=== PATIENT | male | born 1950 | race Caucasian/White ===

== ENCOUNTER 2018-11-14 14:00 | Outpatient (RCR) | payer MEDICARE, OTHER, SELFPAY ==
[2018-07-24 13:14] VITALS: BP 114/88; BP 118/90; BMI 27.3
[2018-08-22 07:54] VITALS: BP 132/82
[2018-09-17 15:29] VITALS: BP 112/82
[2018-10-17 16:08] VITALS: BP 118/86
[2018-11-14 16:20] VITALS: BP 122/68; BMI 27.1
== END 2018-11-15 08:04 ==
LOC: CAR 14:00
PROVIDERS: PCP Family Medicine; Visit Provider Family Medicine
DX: Z95.1 Presence of aortocoronary bypass graft (principal)
CPT/HCPCS: 93798

== ENCOUNTER → 2023-03-16 07:46 | Outpatient (CLI) | payer MEDICARE, OTHER, SELFPAY | LOC: PHYS 07:49 | PROVIDERS: Family Provider Student in an Organized Health Care Education/Training Program; PCP Student in an Organized Health Care Education/Training Program; Referring Provider Student in an Organized Health Care Education/Training Program; Visit Provider Student in an Organized Health Care Education/Training Program | DX: G62.9 Polyneuropathy, unspecified (principal) | CPT/HCPCS: 95886; 95911 ==

== ENCOUNTER 2023-12-13 15:15 | Outpatient (RCR) | payer MEDICARE, OTHER, SELFPAY ==
--- NOTE | 2023-11-08 08:49 | PT.OIE ---
Current Diagnoses Dizziness and giddiness (11/08/23) Visit Care Team Role Provider Type VITOR Lawson Family Provider Non-Staff Primary Care Provider Specialty: Nursing Address: [address] [place] [address], [id number] Email: Jasson Del Rio MD Attending Provider Physician Referring Provider Specialty: Ear, Nose, Throat Address: [address] [place] [address], [id number] Email: [email or web address] Physical Therapy Initial Evaluation PT-OP-A Visit Information Start: 11/08/23 07:14 Freq: Status: Active Protocol: Document 11/08/23 07:29 MB (Rec: 11/08/23 07:55 MB [id number]) Out-Patient Physical Therapy Visit Information Visit Information Visit Type Initial Evaluation Visit Note [employer] Visit Start Time 07:29 Visit Stop Time 08:15 Visit Number 46 Number of SPRING ASSEMBLER SUPERVISOR Visits 0 Evaluation Information Evaluation Date 11/08/23 PT-OP-B Current Condition Start: 11/08/23 07:14 Freq: Status: Active Protocol: Document 11/08/23 07:29 MB (Rec: 11/08/23 07:55 MB [id number]) Current Condition History of Current Condition Onset Date May 2023 Current Complaints Imbalance History of Current Condition In May of 2023, pt was in [place], and on the third day, he woke up and he could barely stand up. He had significant balance issues when he stood up and his head felt full. He went to the ED in [facility] in May after Urgent Care call . He had a CT, MRI and lab studies and all was normal. He was then referred Dr. Del Rio and he couldn't get in to see him until last week. PMH includes: CABG Jun 2018, HTN, DM, kidney disease Pt's current complaint is imbalance. Turning head quickly and occ getting up makes it worse. Standing stationary makes it better. Symptoms in May lasted for hours. Now, they are momentary and last a few seconds. He did not get a dx from Dr. Del Rio. 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 Pt has been able to perform softball since May. Pt denies: ear pressure, history of concussion, performance of sit-ups, anemia , weakness, sinus and allergy issues, trouble swallowing, B12 deficiency, roaring or ringing in the ears, history of whiplash, chiropractor treatment since May, TMJ problems, headache, neck pain. Treatment Goals Patient/Caregiver Goals To play softball with his historical skill. PT-OP-C Subjective Start: 11/08/23 07:14 Freq: Status: Active Protocol: Document 11/08/23 07:29 MB (Rec: 11/08/23 07:55 MB [id number]) OP-PT Subjective Patient Comments Patient Comments See history of current condition Patient Questionnaires Dizziness Handicap Inventory DHI Score 18 DHI Functional Impairment 1 to 19% Impaired (Score 1-19) PT-OP-D Balance Start: 11/08/23 07:14 Freq: Status: Active Protocol: Document 11/08/23 07:29 MB (Rec: 11/08/23 08:48 MB [id number]) Balance Tests Other Other Balance Tests Performed Balance testing: Romberg EO and EC on stable surface: increased sway and no LOB with EC. On unstable surface, sway with EO and LOB with EC PT-OP-H Neuro Start: 11/08/23 07:14 Freq: Status: Active Protocol: Document 11/08/23 07:29 MB (Rec: 11/08/23 07:55 MB [id number]) Coordination Evaluation Upper Extremity Tests Left Finger to Nose Test Normal Performance Pronation/Supination Test Normal Performance Right Finger to Nose Test Normal Performance Pronation/Supination Test Normal Performance Vital Signs Comments Vital Signs Comments Orthostatic assessment with BP and HR in LUE: supine: 135/79 , 73; standin/91, 83; standing 1': 165/97, 84. Pt did take his BP medication this morning. Mildly imbalanced with standing up. PT-OP-K Range of Motion Start: 11/08/23 07:14 Freq: Status: Active Protocol: Document 11/08/23 07:29 MB (Rec: 11/08/23 08:48 MB [id number]) Cervical Spine Range of Motion Cervical Spine Active Testing Position Standing Flexion 40 Extension 30 Rotation Left 60 Rotation Right 40 Comments No dizziness with 5 rep repeated cervical extension back to neutral and repeated cervical flexion back to neutral Shoulder Goniometric Range of Motion Shoulder Bilateral Shoulder ROM WFL Yes Testing Position Standing PT-OP-M Strength Start: 11/08/23 07:14 Freq: Status: Active Protocol: Document 11/08/23 07:29 MB (Rec: 11/08/23 08:48 MB [id number]) Shoulder Strength Shoulder Manual Muscle Testing Bilateral Flexion 5 Normal Abduction (C5) 5 Normal Elbow/Forearm Strength Elbow and Forearm Manual Muscle Testing Bilateral Extension (C7) 5 Normal PT-OP-O Vestibular Start: 11/08/23 07:14 Freq: Status: Active Protocol: Document 11/08/23 07:29 MB (Rec: 11/08/23 08:48 MB [id number]) Vestibular Assessment Visual Testing Smooth Pursuits Horizontal Normal Smooth Pursuits Vertical Normal Saccades Horizontal Normal Gaze Evoked Nystagmus With Fixation Negative Thrust Head Positive Bilateral Convergence Test WNL Spontaneous Nystagmus Negative Vestibulo-Ocular Reflex Cancellation Negative Comments Vestibular Comments Triaged testing today for time use and pt denies dizziness with turning in bed so can defer [place]-Hallpike to a later treatment as needed PT-OP-Q Treatments Start: 11/08/23 07:14 Freq: Status: Active Protocol: Document 11/08/23 07:29 MB (Rec: 11/08/23 08:48 MB [id number]) Self-Care/Home Management Treatment Education Other Education Ed pt on benefits of monitoring BP and communicating with PCP and manager instrumentation, findings of imbalance and likely VOR and peripheral sensory issue components d/t positive VOR head thrust and LOB with unstable surface balance testing with EC. Ed pt in benefits of non-caffeinated fluid intake and to consider light electrolytes each day. Pt also states that he needs to find a new hair and makeup designer and will defer fluid and electrolyte recommendations to medical doctor providers as well. PT-OP-T Assessment and Plan Start: 11/08/23 07:14 Freq: Status: Active Protocol: Document 11/08/23 07:29 MB (Rec: 11/08/23 08:48 MB [id number]) Physical Therapy Assessment Rehab Potential Rehabilitation Potential Fair Evaluation Complexity Number of Personal Factors/Comorbidities 1-2 Number of Body Systems Impaired 3 Clinical Presentation at Evaluation Evolving Impairments Impairments Activity Tolerance,Balance, Functional Activities, Functional Mobility,Gait, Posture,ROM,Sensation,Soft Tissue Mobility,Strength, Vestibular Goals 3 Impairment Lack of HEP Drywall Taper Helper Goal (LTG) Pt will perform progressive HEP with I including VOR, postural and balance exercises to decrease fall risk and improve symptoms. LTG Duration 8 weeks 2 Impairment DHI score reflects 18% impairment Drywall Taper Helper Goal (LTG) Pt will present with an improved DHI score to reflect no more than 10% impairment to improve balance and quality of life d/t dizziness. LTG Duration 8 weeks 1 Impairment Imbalance Halfway Goal (LTG) Pt will perform WNLs on FGA to decrease fall risk. LTG Duration 8 weeks Assessment Summary Assessment Pt is a 72 y/o who reports feeling symptoms of head fullness and imbalance when visiting [place] in extreme heat last summer. ED visit in [place] was negative for acute neuro issue per his report once he returned home. PT does not have access to [facility] results. Pt has a cardiac hx including CABG and HTN as well as DM and kidney disease per report. PT does not have any access to medical history records. Pt presents with HTN with orthostatic testing today . Positive PT findings included positive VOR head thrust B and imbalance with unstable surface with eyes closed. Ed pt on benefits of monitoring BP and communicating with PCP and manager instrumentation. 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 Ed pt in benefits of non- caffeinated fluid intake and to consider light electrolytes each day. Pt also states that he needs to find a new hair and makeup designer and so will defer fluid and electrolyte recommendations to medical doctor providers as well. Pt will benefit from PT to con't vestibular and balance testing and treatment. Will consider Kate-Hallpike testing in the future if he complains of dizziness rolling over. Physical Therapy Plan Frequency and Duration Frequency of Treatment 1-2x/wk Duration of treatment (weeks) 8 Plan of Care Start Date 11/08/23 Plan of Care End Date 01/08/24 Therapeutic Interventions Therapeutic Interventions Balance Training,Canalithic Repositioning,Coordination Training,Gait Training,Home Exercise Program,Joint Mobilizations,Manual Therapy, Neuromuscular Re-education, Patient/Caregiver Education, Self-Care/Home Management,Soft Tissue Mobilization,Taping, Therapeutic Activities, Therapeutic Exercises, Vestibular Rehabilitation Modalities Cold Pack/Ice Massage Next Visit Focus/Plan Next Note Type Treatment Note Next Visit Plan FGA and DVA testing Kate-Hallpike if needed Consider VOMs in future
--- NOTE | 2023-11-08 08:49 | PT.OPPOC ---
Physical, Occupational & Speech Therapy At [facility] Current Diagnoses Dizziness and giddiness (11/08/23) Visit Care Team Role Provider Type VITOR Lawson Family Provider Non-Staff Primary Care Provider Specialty: Nursing Address: [facility] [place], [address] Email: Jasson Del Rio MD Attending Provider Physician Referring Provider Specialty: Ear, Nose, Throat Address: [address] [place] [address], [id number] Email: [email or web address] Plan Of Care PT-OP-T Assessment and Plan Start: 11/08/23 07:14 Freq: Status: Active Protocol: Document 11/08/23 07:29 MB (Rec: 11/08/23 08:48 MB [id number]) Physical Therapy Assessment Rehab Potential Rehabilitation Potential Fair Evaluation Complexity Number of Personal Factors/Comorbidities 1-2 Number of Body Systems Impaired 3 Clinical Presentation at Evaluation Evolving Impairments Impairments Activity Tolerance,Balance, Functional Activities, Functional Mobility,Gait, Posture,ROM,Sensation,Soft Tissue Mobility,Strength, Vestibular Goals 3 Impairment Lack of HEP Fci Goal (LTG) Pt will perform progressive HEP with I including VOR, postural and balance exercises to decrease fall risk and improve symptoms. LTG Duration 8 weeks 2 Impairment DHI score reflects 18% impairment Fci Goal (LTG) Pt will present with an improved DHI score to reflect no more than 10% impairment to improve balance and quality of life d/t dizziness. LTG Duration 8 weeks 1 Impairment Imbalance Carbon Sequestration Plant Operator Goal (LTG) Pt will perform WNLs on FGA to decrease fall risk. LTG Duration 8 weeks Assessment Summary Assessment Pt is a 72 y/o who reports feeling symptoms of head fullness and imbalance when visiting [place] in extreme heat last summer. ED visit in [place] was negative for acute neuro issue per his report once he returned home. PT does not have access to [facility] results. Pt has a cardiac hx including CABG and HTN as well as DM and kidney disease per report. PT does not have any access to medical history records. Pt presents with HTN with orthostatic testing today . Positive PT findings included positive VOR head thrust B and imbalance with unstable surface with eyes closed. Ed pt on benefits of monitoring BP and communicating with PCP and soft crab shedder. 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 Ed pt in benefits of non- caffeinated fluid intake and to consider light electrolytes each day. 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 Pt will benefit from PT to con't vestibular and balance testing and treatment. Will consider Evangeline-Hallpike testing in the future if he complains of dizziness rolling over. Physical Therapy Plan Frequency and Duration Frequency of Treatment 1-2x/wk Duration of treatment (weeks) 8 Plan of Care Start Date 11/08/23 Plan of Care End Date 01/08/24 Therapeutic Interventions Therapeutic Interventions Balance Training,Canalithic Repositioning,Coordination Training,Gait Training,Home Exercise Program,Joint Mobilizations,Manual Therapy, Neuromuscular Re-education, Patient/Caregiver Education, Self-Care/Home Management,Soft Tissue Mobilization,Taping, Therapeutic Activities, Therapeutic Exercises, Vestibular Rehabilitation Modalities Cold Pack/Ice Massage Next Visit Focus/Plan Next Note Type Treatment Note Next Visit Plan FGA and DVA testing Evangeline-Hallpike if needed Consider VOMs in future Plan of Care Dates Plan of Care Start Date 11/08/23 Plan of Care End Date 01/08/24 Electronically Signed by: Jeana Sheridan, PT 11/08/23 0849 If you are in agreement with this Plan of Care, please return a signed and dated copy. I have reviewed this Plan of Care and certify that the skilled therapy services above are required to meet the patient?s needs. Physician Signature Date Printed Name and Credentials Clinical Instructor Signature Printed Name and Credentials
--- NOTE | 2023-11-14 08:29 | PT.OTN ---
Current Diagnoses Dizziness and giddiness (11/14/23) Physical Therapy Treatment Note PT-OP-A Visit Information Start: 11/08/23 07:14 Freq: Status: Active Protocol: Document 11/14/23 07:29 MB (Rec: 11/14/23 08:28 MB [id number]) Out-Patient Physical Therapy Visit Information Visit Information Visit Type Treatment Note Visit Note 11/25 Visit Start Time 07:29 Visit Stop Time 08:14 Visit Number 45 Number of TOOL AND DIE MANAGER Visits 0 PT-OP-B Current Condition Start: 11/08/23 07:14 Freq: Status: Active Protocol: Document 11/08/23 07:29 MB (Rec: 11/08/23 07:55 MB [id number]) Current Condition History of Current Condition Onset Date May 2023 Current Complaints Imbalance History of Current Condition In May of 2023, pt was in [place], and on the third day, he woke up and he could barely stand up. He had significant balance issues when he stood up and his head felt full. He went to the ED in [facility] in May after Urgent Care call . He had a CT, MRI and lab studies and all was normal. He was then referred Dr. Del Rio and he couldn't get in to see him until last week. PMH includes: CABG Jun 2018, HTN, DM, kidney disease Pt's current complaint is imbalance. Turning head quickly and occ getting up makes it worse. Standing stationary makes it better. Symptoms in May lasted for hours. Now, they are momentary and last a few seconds. He did not get a dx from Dr. Del Rio. 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 Pt has been able to perform softball since May. Pt denies: ear pressure, history of concussion, performance of sit-ups, anemia , weakness, sinus and allergy issues, trouble swallowing, B12 deficiency, roaring or ringing in the ears, history of whiplash, chiropractor treatment since May, TMJ problems, headache, neck pain. Treatment Goals Patient/Caregiver Goals To play softball with his historical skill. PT-OP-C Subjective Start: 11/08/23 07:14 Freq: Status: Active Protocol: Document 11/14/23 07:29 MB (Rec: 11/14/23 08:28 MB [id number]) OP-PT Subjective Patient Comments Patient Comments Pt knows that he has the white coat syndrome as far as his BP. He can take it at home and it is fine and when he comes to the clinic, it can be high. He took his BP 6 times since the eval and none of it was close. PT-OP-D Balance Start: 11/08/23 07:14 Freq: Status: Active Protocol: Document 11/08/23 07:29 MB (Rec: 11/08/23 08:48 MB [id number]) Balance Tests Other Other Balance Tests Performed Balance testing: Romberg EO and EC on stable surface: increased sway and no LOB with EC. On unstable surface, sway with EO and LOB with EC PT-OP-H Neuro Start: 11/08/23 07:14 Freq: Status: Active Protocol: Document 11/08/23 07:29 MB (Rec: 11/08/23 07:55 MB [id number]) Coordination Evaluation Upper Extremity Tests Left Finger to Nose Test Normal Performance Pronation/Supination Test Normal Performance Right Finger to Nose Test Normal Performance Pronation/Supination Test Normal Performance Vital Signs Comments Vital Signs Comments Orthostatic assessment with BP and HR in LUE: supine: 135/79 , 73; standin/91, 83; standing 1': 165/97, 84. Pt did take his BP medication this morning. Mildly imbalanced with standing up. PT-OP-K Range of Motion Start: 11/08/23 07:14 Freq: Status: Active Protocol: Document 11/08/23 07:29 MB (Rec: 11/08/23 08:48 MB [id number]) Cervical Spine Range of Motion Cervical Spine Active Testing Position Standing Flexion 40 Extension 30 Rotation Left 60 Rotation Right 40 Comments No dizziness with 5 rep repeated cervical extension back to neutral and repeated cervical flexion back to neutral Shoulder Goniometric Range of Motion Shoulder Bilateral Shoulder ROM WFL Yes Testing Position Standing PT-OP-M Strength Start: 11/08/23 07:14 Freq: Status: Active Protocol: Document 11/08/23 07:29 MB (Rec: 11/08/23 08:48 MB [id number]) Shoulder Strength Shoulder Manual Muscle Testing Bilateral Flexion 5 Normal Abduction (C5) 5 Normal Elbow/Forearm Strength Elbow and Forearm Manual Muscle Testing Bilateral Extension (C7) 5 Normal PT-OP-O Vestibular Start: 11/08/23 07:14 Freq: Status: Active Protocol: Document 11/08/23 07:29 MB (Rec: 11/08/23 08:48 MB [id number]) Vestibular Assessment Visual Testing Smooth Pursuits Horizontal Normal Smooth Pursuits Vertical Normal Saccades Horizontal Normal Gaze Evoked Nystagmus With Fixation Negative Thrust Head Positive Bilateral Convergence Test WNL Spontaneous Nystagmus Negative Vestibulo-Ocular Reflex Cancellation Negative Comments Vestibular Comments Triaged testing today for time use and pt denies dizziness with turning in bed so can defer Kate-Hallpike to a later treatment as needed PT-OP-Q Treatments Start: 11/08/23 07:14 Freq: Status: Active Protocol: Document 11/14/23 07:29 MB (Rec: 11/14/23 08:28 MB [id number]) Therapeutic Exercises Standing Exercises VOR exercise Equipment Used Home eye chart Reps/Minutes 60-120 sec Comments E second from bottom, horizontal and vertical head oscillations, first 45 Therapeutic Activity Therapeutic Activity Balance activities to perform at home Comments From FGA testing: walking with wall nearby to slide finger down: sets (circuit) of walking with head turns, walking with eyes closed, tandem walking Neuro Re-Education Treatment Balance Activities DVA testing Comments Pt has a 4 line difference between reading eye chart with head still and head with passive vertical oscillations and a 1 line difference between head still and horizontal oscillations by PT FGA Comments FGA today and pt reports most symptoms with walking with eyes closed, walking with horizontal head turns and pt has a lot of trouble with tandem walking. Score is 23/30 Vestibular Rehabilitation VOMS Comments Before testing, fogginess symptoms 3/10 1-Smooth pursuits normal and no increase sxs 2-Horizontal saccades no increased sxs 3-Vertical saccades no increased sxs 4-Horizontal VOR pt reports it almost increases sxs 5-Vertical VOR no increase symptoms 6-No increase in symptoms 7-Accommodation 12 cm and no increase sxs 8-Convergence 4 cm and no increase sxs PT-OP-T Assessment and Plan Start: 11/08/23 07:14 Freq: Status: Active Protocol: Document 11/14/23 07:29 MB (Rec: 11/14/23 08:28 MB [id number]) Physical Therapy Assessment Rehab Potential Rehabilitation Potential Fair Evaluation Complexity Number of Personal Factors/Comorbidities 1-2 Number of Body Systems Impaired 3 Clinical Presentation at Evaluation Evolving Impairments Impairments Activity Tolerance,Balance, Functional Activities, Functional Mobility,Gait, Posture,ROM,Sensation,Soft Tissue Mobility,Strength, Vestibular Goals 3 Impairment Lack of HEP Posting Clerk Goal (LTG) Pt will perform progressive HEP with I including VOR, postural and balance exercises to decrease fall risk and improve symptoms. LTG Duration 8 weeks 2 Impairment DHI score reflects 18% impairment Posting Clerk Goal (LTG) Pt will present with an improved DHI score to reflect no more than 10% impairment to improve balance and quality of life d/t dizziness. LTG Duration 8 weeks 1 Impairment Imbalance Intermediate Goal (LTG) Pt will perform WNLs on FGA to decrease fall risk. LTG Duration 8 weeks Assessment Summary Assessment FGA and DVA testing today and pt with imbalance and VOR challenges and initiated home program. Started home DVA exercise in standing with eye chart 10' away from pt. Vertical head turns were most challenging in testing and horizontal head turns are most challenging with gait as well as gait with eyes closed and tandem walking. 45 sec horizontal DVA exercise tolerated before E is blurry and 35 sec for vertical. VOMS testing also performed today and no HEP came out of testing . PT feels that pt's hearing challenges contribute to his imbalance and he is getting hearing aides in the future. Cardiac history and high BP is also something to keep in mind. Physical Therapy Plan Frequency and Duration Frequency of Treatment 1-2x/wk Duration of treatment (weeks) 8 Plan of Care Start Date 11/08/23 Plan of Care End Date 01/08/24 Therapeutic Interventions Therapeutic Interventions Balance Training,Canalithic Repositioning,Coordination Training,Gait Training,Home Exercise Program,Joint Mobilizations,Manual Therapy, Neuromuscular Re-education, Patient/Caregiver Education, Self-Care/Home Management,Soft Tissue Mobilization,Taping, Therapeutic Activities, Therapeutic Exercises, Vestibular Rehabilitation Modalities Cold Pack/Ice Massage Next Visit Focus/Plan Next Note Type Treatment Note Next Visit Plan Review three FGA balance tasks in hallway and advance if needed (walking eyes closed, horizontal head turns, tandem walking), review DVA eye chart exercise--pt should bring in homework exercises
--- NOTE | 2023-11-24 12:46 | PT.OTN ---
Current Diagnoses Dizziness and giddiness (11/24/23) Physical Therapy Treatment Note PT-OP-A Visit Information Start: 11/08/23 07:14 Freq: Status: Active Protocol: Document 11/24/23 12:00 DCW (Rec: 11/24/23 12:46 DCW [id number]) Out-Patient Physical Therapy Visit Information Visit Information Visit Type Treatment Note Visit Note 12/23 Visit Start Time 12:00 Visit Stop Time 12:45 Visit Number 3 Number of REVISING CLERK Visits 0 PT-OP-B Current Condition Start: 11/08/23 07:14 Freq: Status: Active Protocol: Document 11/08/23 07:29 MB (Rec: 11/08/23 07:55 MB [id number]) Current Condition History of Current Condition Onset Date May 2023 Current Complaints Imbalance History of Current Condition In May of 2023, pt was in [place], and on the third day, he woke up and he could barely stand up. He had significant balance issues when he stood up and his head felt full. He went to the ED in [facility] in May after Urgent Care call . He had a CT, MRI and lab studies and all was normal. He was then referred Dr. Del Rio and he couldn't get in to see him until last week. PMH includes: CABG Jun 2018, HTN, DM, kidney disease Pt's current complaint is imbalance. Turning head quickly and occ getting up makes it worse. Standing stationary makes it better. Symptoms in May lasted for hours. Now, they are momentary and last a few seconds. He did not get a dx from Dr. Del Rio. 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 Pt has been able to perform softball since May. Pt denies: ear pressure, history of concussion, performance of sit-ups, anemia , weakness, sinus and allergy issues, trouble swallowing, B12 deficiency, roaring or ringing in the ears, history of whiplash, chiropractor treatment since May, TMJ problems, headache, neck pain. Treatment Goals Patient/Caregiver Goals To play softball with his historical skill. PT-OP-C Subjective Start: 11/08/23 07:14 Freq: Status: Active Protocol: Document 11/24/23 12:00 DCW (Rec: 11/24/23 12:46 DCW [id number]) OP-PT Subjective Patient Comments Patient Comments Pt notes that tandem walking seems to be his most difficult HEP. PT-OP-D Balance Start: 11/08/23 07:14 Freq: Status: Active Protocol: Document 11/08/23 07:29 MB (Rec: 11/08/23 08:48 MB [id number]) Balance Tests Other Other Balance Tests Performed Balance testing: Romberg EO and EC on stable surface: increased sway and no LOB with EC. On unstable surface, sway with EO and LOB with EC PT-OP-H Neuro Start: 11/08/23 07:14 Freq: Status: Active Protocol: Document 11/08/23 07:29 MB (Rec: 11/08/23 07:55 MB [id number]) Coordination Evaluation Upper Extremity Tests Left Finger to Nose Test Normal Performance Pronation/Supination Test Normal Performance Right Finger to Nose Test Normal Performance Pronation/Supination Test Normal Performance Vital Signs Comments Vital Signs Comments Orthostatic assessment with BP and HR in LUE: supine: 135/79 , 73; standin/91, 83; standing 1': 165/97, 84. Pt did take his BP medication this morning. Mildly imbalanced with standing up. PT-OP-K Range of Motion Start: 11/08/23 07:14 Freq: Status: Active Protocol: Document 11/08/23 07:29 MB (Rec: 11/08/23 08:48 MB [id number]) Cervical Spine Range of Motion Cervical Spine Active Testing Position Standing Flexion 40 Extension 30 Rotation Left 60 Rotation Right 40 Comments No dizziness with 5 rep repeated cervical extension back to neutral and repeated cervical flexion back to neutral Shoulder Goniometric Range of Motion Shoulder Bilateral Shoulder ROM WFL Yes Testing Position Standing PT-OP-M Strength Start: 11/08/23 07:14 Freq: Status: Active Protocol: Document 11/08/23 07:29 MB (Rec: 11/08/23 08:48 MB [id number]) Shoulder Strength Shoulder Manual Muscle Testing Bilateral Flexion 5 Normal Abduction (C5) 5 Normal Elbow/Forearm Strength Elbow and Forearm Manual Muscle Testing Bilateral Extension (C7) 5 Normal PT-OP-O Vestibular Start: 11/08/23 07:14 Freq: Status: Active Protocol: Document 11/08/23 07:29 MB (Rec: 11/08/23 08:48 MB [id number]) Vestibular Assessment Visual Testing Smooth Pursuits Horizontal Normal Smooth Pursuits Vertical Normal Saccades Horizontal Normal Gaze Evoked Nystagmus With Fixation Negative Thrust Head Positive Bilateral Convergence Test WNL Spontaneous Nystagmus Negative Vestibulo-Ocular Reflex Cancellation Negative Comments Vestibular Comments Triaged testing today for time use and pt denies dizziness with turning in bed so can defer Elk-Hallpike to a later treatment as needed PT-OP-Q Treatments Start: 11/08/23 07:14 Freq: Status: Active Protocol: Document 11/24/23 12:00 DCW (Rec: 11/24/23 12:46 DCW [id number]) Gym Equipment Shuttle Balance Red Details WBOS, Staggered Neuro Re-Education Treatment Balance Activities Visual Conflict Details Visual Conflict board Surface Black AirEx Tandem Details Tandem Stance Dynamic Gait Details Hallway walking Comments Head Turns (100 bpm) Tandem Ambulation Retro Ambulation EC Ambulation Vestibular Rehabilitation X2 Viewing Details Head and target moving opposite directions Distance From Target Arm's length Speed as tolerated Position seated X1 Viewing Details Static target, head moving Distance From Target Arm's length Speed as tolerated Position seated VOR Retraining Details Head, eyes, target moving together Distance From Target Arm's length Speed as tolerated Position seated PT-OP-T Assessment and Plan Start: 11/08/23 07:14 Freq: Status: Active Protocol: Document 11/24/23 12:00 DCW (Rec: 11/24/23 12:46 DCW [id number]) Physical Therapy Assessment Impairments Impairments Activity Tolerance,Balance, Functional Activities, Functional Mobility,Gait, Posture,ROM,Sensation,Soft Tissue Mobility,Strength, Vestibular Goals 3 Impairment Lack of HEP Blunger Machine Operator Goal (LTG) Pt will perform progressive HEP with I including VOR, postural and balance exercises to decrease fall risk and improve symptoms. LTG Duration 8 weeks 2 Impairment DHI score reflects 18% impairment Blunger Machine Operator Goal (LTG) Pt will present with an improved DHI score to reflect no more than 10% impairment to improve balance and quality of life d/t dizziness. LTG Duration 8 weeks 1 Impairment Imbalance Blunger Machine Operator Goal (LTG) Pt will perform WNLs on FGA to decrease fall risk. LTG Duration 8 weeks Assessment Summary Assessment Pt had good response to new balance challenges, did appear to have difficulty with both tandem ambulation and tandem stance, but was able to improve with stability over time. Provided with Hand-out for VOR, X1, X2 HEP. Physical Therapy Plan Frequency and Duration Frequency of Treatment 1-2x/wk Duration of treatment (weeks) 8 Plan of Care Start Date 11/08/23 Plan of Care End Date 01/08/24 Therapeutic Interventions Therapeutic Interventions Balance Training,Canalithic Repositioning,Coordination Training,Gait Training,Home Exercise Program,Joint Mobilizations,Manual Therapy, Neuromuscular Re-education, Patient/Caregiver Education, Self-Care/Home Management,Soft Tissue Mobilization,Taping, Therapeutic Activities, Therapeutic Exercises, Vestibular Rehabilitation Modalities Cold Pack/Ice Massage Next Visit Focus/Plan Next Note Type Treatment Note Next Visit Plan Review three FGA balance tasks in hallway and advance if needed (walking eyes closed, horizontal head turns, tandem walking), review DVA eye chart exercise--pt should bring in homework exercises
--- NOTE | 2023-11-28 12:46 | PT.OTN ---
Current Diagnoses Dizziness and giddiness (11/28/23) Physical Therapy Treatment Note PT-OP-A Visit Information Start: 11/08/23 07:14 Freq: Status: Active Protocol: Document 11/28/23 12:05 DCW (Rec: 11/28/23 12:46 DCW [id number]) Out-Patient Physical Therapy Visit Information Visit Information Visit Type Treatment Note Visit Note 01/23 Visit Start Time 12:05 Visit Stop Time 12:45 Visit Number 4 Number of CLINICAL DATA ASSOCIATE Visits 0 PT-OP-B Current Condition Start: 11/08/23 07:14 Freq: Status: Active Protocol: Document 11/08/23 07:29 MB (Rec: 11/08/23 07:55 MB [id number]) Current Condition History of Current Condition Onset Date May 2023 Current Complaints Imbalance History of Current Condition In May of 2023, pt was in [place], and on the third day, he woke up and he could barely stand up. He had significant balance issues when he stood up and his head felt full. He went to the ED in [facility] in May after Urgent Care call . He had a CT, MRI and lab studies and all was normal. He was then referred Dr. Del Rio and he couldn't get in to see him until last week. PMH includes: CABG Jun 2018, HTN, DM, kidney disease Pt's current complaint is imbalance. Turning head quickly and occ getting up makes it worse. Standing stationary makes it better. Symptoms in May lasted for hours. Now, they are momentary and last a few seconds. He did not get a dx from Dr. Del Rio. 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 Pt has been able to perform softball since May. Pt denies: ear pressure, history of concussion, performance of sit-ups, anemia , weakness, sinus and allergy issues, trouble swallowing, B12 deficiency, roaring or ringing in the ears, history of whiplash, chiropractor treatment since May, TMJ problems, headache, neck pain. Treatment Goals Patient/Caregiver Goals To play softball with his historical skill. PT-OP-C Subjective Start: 11/08/23 07:14 Freq: Status: Active Protocol: Document 11/28/23 12:05 DCW (Rec: 11/28/23 12:46 DCW [id number]) OP-PT Subjective Patient Comments Patient Comments Still standing upright. PT-OP-D Balance Start: 11/08/23 07:14 Freq: Status: Active Protocol: Document 11/08/23 07:29 MB (Rec: 11/08/23 08:48 MB [id number]) Balance Tests Other Other Balance Tests Performed Balance testing: Romberg EO and EC on stable surface: increased sway and no LOB with EC. On unstable surface, sway with EO and LOB with EC PT-OP-H Neuro Start: 11/08/23 07:14 Freq: Status: Active Protocol: Document 11/08/23 07:29 MB (Rec: 11/08/23 07:55 MB [id number]) Coordination Evaluation Upper Extremity Tests Left Finger to Nose Test Normal Performance Pronation/Supination Test Normal Performance Right Finger to Nose Test Normal Performance Pronation/Supination Test Normal Performance Vital Signs Comments Vital Signs Comments Orthostatic assessment with BP and HR in LUE: supine: 135/79 , 73; standin/91, 83; standing 1': 165/97, 84. Pt did take his BP medication this morning. Mildly imbalanced with standing up. PT-OP-K Range of Motion Start: 11/08/23 07:14 Freq: Status: Active Protocol: Document 11/08/23 07:29 MB (Rec: 11/08/23 08:48 MB [id number]) Cervical Spine Range of Motion Cervical Spine Active Testing Position Standing Flexion 40 Extension 30 Rotation Left 60 Rotation Right 40 Comments No dizziness with 5 rep repeated cervical extension back to neutral and repeated cervical flexion back to neutral Shoulder Goniometric Range of Motion Shoulder Bilateral Shoulder ROM WFL Yes Testing Position Standing PT-OP-M Strength Start: 11/08/23 07:14 Freq: Status: Active Protocol: Document 11/08/23 07:29 MB (Rec: 11/08/23 08:48 MB [id number]) Shoulder Strength Shoulder Manual Muscle Testing Bilateral Flexion 5 Normal Abduction (C5) 5 Normal Elbow/Forearm Strength Elbow and Forearm Manual Muscle Testing Bilateral Extension (C7) 5 Normal PT-OP-O Vestibular Start: 11/08/23 07:14 Freq: Status: Active Protocol: Document 11/08/23 07:29 MB (Rec: 11/08/23 08:48 MB [id number]) Vestibular Assessment Visual Testing Smooth Pursuits Horizontal Normal Smooth Pursuits Vertical Normal Saccades Horizontal Normal Gaze Evoked Nystagmus With Fixation Negative Thrust Head Positive Bilateral Convergence Test WNL Spontaneous Nystagmus Negative Vestibulo-Ocular Reflex Cancellation Negative Comments Vestibular Comments Triaged testing today for time use and pt denies dizziness with turning in bed so can defer Kate-Hallpike to a later treatment as needed PT-OP-Q Treatments Start: 11/08/23 07:14 Freq: Status: Active Protocol: Document 11/28/23 12:05 DCW (Rec: 11/28/23 12:46 DCW [id number]) Gym Equipment Shuttle Balance Red Details WBOS, Staggered, Lateral weight shift Neuro Re-Education Treatment Balance Activities Disco Ball Details Disco ball Surface Black AirEx Uneven ground Details Ambulation over uneven pad, hurdles Comments Fwd, Side-stepping Foam Details Marching, Tandem Surface Large blue foam Visual Conflict Details Visual Conflict board Surface Large blue foam Dynamic Gait Details Hallway walking Comments Head Turns (100 bpm) Tandem Ambulation Retro Ambulation EC Ambulation PT-OP-T Assessment and Plan Start: 11/08/23 07:14 Freq: Status: Active Protocol: Document 11/28/23 12:05 DCW (Rec: 11/28/23 12:46 DCW [id number]) Physical Therapy Assessment Impairments Impairments Activity Tolerance,Balance, Functional Activities, Functional Mobility,Gait, Posture,ROM,Sensation,Soft Tissue Mobility,Strength, Vestibular Goals 3 Impairment Lack of HEP Firefighter Goal (LTG) Pt will perform progressive HEP with I including VOR, postural and balance exercises to decrease fall risk and improve symptoms. LTG Duration 8 weeks 2 Impairment DHI score reflects 18% impairment Mcc Goal (LTG) Pt will present with an improved DHI score to reflect no more than 10% impairment to improve balance and quality of life d/t dizziness. LTG Duration 8 weeks 1 Impairment Imbalance Mcc Goal (LTG) Pt will perform WNLs on FGA to decrease fall risk. LTG Duration 8 weeks Assessment Summary Assessment Continues to exhibit good response to balance challenges , typically has short time with slight difficulty at start of new exercise, but quickly adjusts and does fairly well with all challenges. Physical Therapy Plan Frequency and Duration Frequency of Treatment 1-2x/wk Duration of treatment (weeks) 8 Plan of Care Start Date 11/08/23 Plan of Care End Date 01/08/24 Therapeutic Interventions Therapeutic Interventions Balance Training,Canalithic Repositioning,Coordination Training,Gait Training,Home Exercise Program,Joint Mobilizations,Manual Therapy, Neuromuscular Re-education, Patient/Caregiver Education, Self-Care/Home Management,Soft Tissue Mobilization,Taping, Therapeutic Activities, Therapeutic Exercises, Vestibular Rehabilitation Modalities Cold Pack/Ice Massage Next Visit Focus/Plan Next Note Type Treatment Note Next Visit Plan Review three FGA balance tasks in hallway and advance if needed (walking eyes closed, horizontal head turns, tandem walking), review DVA eye chart exercise--pt should bring in homework exercises
--- NOTE | 2023-12-04 10:28 | PT.OTN ---
Current Diagnoses Dizziness and giddiness (12/04/23) Physical Therapy Treatment Note PT-OP-A Visit Information Start: 11/08/23 07:14 Freq: Status: Active Protocol: Document 12/04/23 09:45 DCW (Rec: 12/04/23 10:28 DCW [id number]) Out-Patient Physical Therapy Visit Information Visit Information Visit Type Treatment Note Visit Note 02/22 Visit Start Time 09:45 Visit Stop Time 10:30 Visit Number 5 Number of WETLANDS TECHNICIAN Visits 0 PT-OP-B Current Condition Start: 11/08/23 07:14 Freq: Status: Active Protocol: Document 11/08/23 07:29 MB (Rec: 11/08/23 07:55 MB [id number]) Current Condition History of Current Condition Onset Date May 2023 Current Complaints Imbalance History of Current Condition In May of 2023, pt was in [place], and on the third day, he woke up and he could barely stand up. He had significant balance issues when he stood up and his head felt full. He went to the ED in [facility] in May after Urgent Care call . He had a CT, MRI and lab studies and all was normal. He was then referred Dr. Del Rio and he couldn't get in to see him until last week. PMH includes: CABG Jun 2018, HTN, DM, kidney disease Pt's current complaint is imbalance. Turning head quickly and occ getting up makes it worse. Standing stationary makes it better. Symptoms in May lasted for hours. Now, they are momentary and last a few seconds. He did not get a dx from Dr. Del Rio. 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 Pt has been able to perform softball since May. Pt denies: ear pressure, history of concussion, performance of sit-ups, anemia , weakness, sinus and allergy issues, trouble swallowing, B12 deficiency, roaring or ringing in the ears, history of whiplash, chiropractor treatment since May, TMJ problems, headache, neck pain. Treatment Goals Patient/Caregiver Goals To play softball with his historical skill. PT-OP-C Subjective Start: 11/08/23 07:14 Freq: Status: Active Protocol: Document 12/04/23 09:45 DCW (Rec: 12/04/23 10:28 DCW [id number]) OP-PT Subjective Patient Comments Patient Comments Balance has been reasonably well, does note that he hurt his ankle at the gym Monday, could barely walk the next day, but was feeling better yesterday. PT-OP-D Balance Start: 11/08/23 07:14 Freq: Status: Active Protocol: Document 11/08/23 07:29 MB (Rec: 11/08/23 08:48 MB [id number]) Balance Tests Other Other Balance Tests Performed Balance testing: Romberg EO and EC on stable surface: increased sway and no LOB with EC. On unstable surface, sway with EO and LOB with EC PT-OP-H Neuro Start: 11/08/23 07:14 Freq: Status: Active Protocol: Document 11/08/23 07:29 MB (Rec: 11/08/23 07:55 MB [id number]) Coordination Evaluation Upper Extremity Tests Left Finger to Nose Test Normal Performance Pronation/Supination Test Normal Performance Right Finger to Nose Test Normal Performance Pronation/Supination Test Normal Performance Vital Signs Comments Vital Signs Comments Orthostatic assessment with BP and HR in LUE: supine: 135/79 , 73; standin/91, 83; standing 1': 165/97, 84. Pt did take his BP medication this morning. Mildly imbalanced with standing up. PT-OP-K Range of Motion Start: 11/08/23 07:14 Freq: Status: Active Protocol: Document 11/08/23 07:29 MB (Rec: 11/08/23 08:48 MB [id number]) Cervical Spine Range of Motion Cervical Spine Active Testing Position Standing Flexion 40 Extension 30 Rotation Left 60 Rotation Right 40 Comments No dizziness with 5 rep repeated cervical extension back to neutral and repeated cervical flexion back to neutral Shoulder Goniometric Range of Motion Shoulder Bilateral Shoulder ROM WFL Yes Testing Position Standing PT-OP-M Strength Start: 11/08/23 07:14 Freq: Status: Active Protocol: Document 11/08/23 07:29 MB (Rec: 11/08/23 08:48 MB [id number]) Shoulder Strength Shoulder Manual Muscle Testing Bilateral Flexion 5 Normal Abduction (C5) 5 Normal Elbow/Forearm Strength Elbow and Forearm Manual Muscle Testing Bilateral Extension (C7) 5 Normal PT-OP-O Vestibular Start: 11/08/23 07:14 Freq: Status: Active Protocol: Document 11/08/23 07:29 MB (Rec: 11/08/23 08:48 MB [id number]) Vestibular Assessment Visual Testing Smooth Pursuits Horizontal Normal Smooth Pursuits Vertical Normal Saccades Horizontal Normal Gaze Evoked Nystagmus With Fixation Negative Thrust Head Positive Bilateral Convergence Test WNL Spontaneous Nystagmus Negative Vestibulo-Ocular Reflex Cancellation Negative Comments Vestibular Comments Triaged testing today for time use and pt denies dizziness with turning in bed so can defer [place]-Hallpike to a later treatment as needed PT-OP-Q Treatments Start: 11/08/23 07:14 Freq: Status: Active Protocol: Document 12/04/23 09:45 DCW (Rec: 12/04/23 10:28 DCW [id number]) Gym Equipment Shuttle Balance Red Details WBOS, Staggered, Lateral weight shift Neuro Re-Education Treatment Balance Activities BOSU Details Head turns, EO/EC Uneven ground Details Ambulation over uneven pad, hurdles Comments Fwd, Side-stepping Foam Details Tandem /c head turns, marching , SLS Surface Large blue foam Dynamic Gait Details Hallway walking Comments Tandem Ambulation Retro Ambulation EC Ambulation PT-OP-T Assessment and Plan Start: 11/08/23 07:14 Freq: Status: Active Protocol: Document 12/04/23 09:45 DCW (Rec: 12/04/23 10:28 DCW [id number]) Physical Therapy Assessment Impairments Impairments Activity Tolerance,Balance, Functional Activities, Functional Mobility,Gait, Posture,ROM,Sensation,Soft Tissue Mobility,Strength, Vestibular Goals 3 Impairment Lack of HEP Dental Insurance Biller Goal (LTG) Pt will perform progressive HEP with I including VOR, postural and balance exercises to decrease fall risk and improve symptoms. LTG Duration 8 weeks 2 Impairment DHI score reflects 18% impairment Dental Insurance Biller Goal (LTG) Pt will present with an improved DHI score to reflect no more than 10% impairment to improve balance and quality of life d/t dizziness. LTG Duration 8 weeks 1 Impairment Imbalance Senior Living Goal (LTG) Pt will perform WNLs on FGA to decrease fall risk. LTG Duration 8 weeks Assessment Summary Assessment Good tolerance to balance challenges today, appears to be much better with stabilization during higher- level activities. Physical Therapy Plan Frequency and Duration Frequency of Treatment 1-2x/wk Duration of treatment (weeks) 8 Plan of Care Start Date 11/08/23 Plan of Care End Date 01/08/24 Therapeutic Interventions Therapeutic Interventions Balance Training,Canalithic Repositioning,Coordination Training,Gait Training,Home Exercise Program,Joint Mobilizations,Manual Therapy, Neuromuscular Re-education, Patient/Caregiver Education, Self-Care/Home Management,Soft Tissue Mobilization,Taping, Therapeutic Activities, Therapeutic Exercises, Vestibular Rehabilitation Modalities Cold Pack/Ice Massage Next Visit Focus/Plan Next Note Type Treatment Note Next Visit Plan Review three FGA balance tasks in hallway and advance if needed (walking eyes closed, horizontal head turns, tandem walking), review DVA eye chart exercise--pt should bring in homework exercises
--- NOTE | 2023-12-13 16:05 | PT.OTN ---
Current Diagnoses Dizziness and giddiness (12/13/23) Physical Therapy Treatment Note PT-OP-A Visit Information Start: 11/08/23 07:14 Freq: Status: Active Protocol: Document 12/13/23 15:18 MB (Rec: 12/13/23 16:05 MB [id number]) Out-Patient Physical Therapy Visit Information Visit Information Visit Type Treatment Note Visit Note 03/25 Visit Start Time 15:18 Visit Stop Time 15:58 Visit Number 6 PT-OP-B Current Condition Start: 11/08/23 07:14 Freq: Status: Active Protocol: Document 11/08/23 07:29 MB (Rec: 11/08/23 07:55 MB [id number]) Current Condition History of Current Condition Onset Date May 2023 Current Complaints Imbalance History of Current Condition In May of 2023, pt was in [place], and on the third day, he woke up and he could barely stand up. He had significant balance issues when he stood up and his head felt full. He went to the ED in [facility] in May after Urgent Care call . He had a CT, MRI and lab studies and all was normal. He was then referred Dr. Del Rio and he couldn't get in to see him until last week. PMH includes: CABG Jun 2018, HTN, DM, kidney disease Pt's current complaint is imbalance. Turning head quickly and occ getting up makes it worse. Standing stationary makes it better. Symptoms in May lasted for hours. Now, they are momentary and last a few seconds. He did not get a dx from Dr. Del Rio. 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 Pt has been able to perform softball since May. Pt denies: ear pressure, history of concussion, performance of sit-ups, anemia , weakness, sinus and allergy issues, trouble swallowing, B12 deficiency, roaring or ringing in the ears, history of whiplash, chiropractor treatment since May, TMJ problems, headache, neck pain. Treatment Goals Patient/Caregiver Goals To play softball with his historical skill. PT-OP-C Subjective Start: 11/08/23 07:14 Freq: Status: Active Protocol: Document 12/13/23 15:18 MB (Rec: 12/13/23 16:05 MB [id number]) OP-PT Subjective Patient Comments Patient Comments Pt has an ENT follow-up December [address] Del Rio. Pt is doing his vestibular and balance exercises twice daily. Patient Questionnaires Dizziness Handicap Inventory DHI Score 12 PT-OP-D Balance Start: 11/08/23 07:14 Freq: Status: Active Protocol: Document 11/08/23 07:29 MB (Rec: 11/08/23 08:48 MB [id number]) Balance Tests Other Other Balance Tests Performed Balance testing: Romberg EO and EC on stable surface: increased sway and no LOB with EC. On unstable surface, sway with EO and LOB with EC PT-OP-H Neuro Start: 11/08/23 07:14 Freq: Status: Active Protocol: Document 11/08/23 07:29 MB (Rec: 11/08/23 07:55 MB [id number]) Coordination Evaluation Upper Extremity Tests Left Finger to Nose Test Normal Performance Pronation/Supination Test Normal Performance Right Finger to Nose Test Normal Performance Pronation/Supination Test Normal Performance Vital Signs Comments Vital Signs Comments Orthostatic assessment with BP and HR in LUE: supine: 135/79 , 73; standin/91, 83; standing 1': 165/97, 84. Pt did take his BP medication this morning. Mildly imbalanced with standing up. PT-OP-K Range of Motion Start: 11/08/23 07:14 Freq: Status: Active Protocol: Document 11/08/23 07:29 MB (Rec: 11/08/23 08:48 MB [id number]) Cervical Spine Range of Motion Cervical Spine Active Testing Position Standing Flexion 40 Extension 30 Rotation Left 60 Rotation Right 40 Comments No dizziness with 5 rep repeated cervical extension back to neutral and repeated cervical flexion back to neutral Shoulder Goniometric Range of Motion Shoulder Bilateral Shoulder ROM WFL Yes Testing Position Standing PT-OP-M Strength Start: 11/08/23 07:14 Freq: Status: Active Protocol: Document 11/08/23 07:29 MB (Rec: 11/08/23 08:48 MB [id number]) Shoulder Strength Shoulder Manual Muscle Testing Bilateral Flexion 5 Normal Abduction (C5) 5 Normal Elbow/Forearm Strength Elbow and Forearm Manual Muscle Testing Bilateral Extension (C7) 5 Normal PT-OP-O Vestibular Start: 11/08/23 07:14 Freq: Status: Active Protocol: Document 11/08/23 07:29 MB (Rec: 11/08/23 08:48 MB [id number]) Vestibular Assessment Visual Testing Smooth Pursuits Horizontal Normal Smooth Pursuits Vertical Normal Saccades Horizontal Normal Gaze Evoked Nystagmus With Fixation Negative Thrust Head Positive Bilateral Convergence Test WNL Spontaneous Nystagmus Negative Vestibulo-Ocular Reflex Cancellation Negative Comments Vestibular Comments Triaged testing today for time use and pt denies dizziness with turning in bed so can defer Kate-Hallpike to a later treatment as needed PT-OP-Q Treatments Start: 11/08/23 07:14 Freq: Status: Active Protocol: Document 12/13/23 15:18 MB (Rec: 12/13/23 16:05 MB [id number]) Neuro Re-Education Treatment Balance Activities Romberg with EC and head turns Comments Performed in corner and added to HEP, hold up to 60 sec SLS Comments Peformed in corner this afternoon and this is challenging B and he can stand for several seconds on each leg Tandem Comments Performed in corner today in preparation for HEP FGA Comments Score 28/30 today and much improved with only mild challenges with EC and tandem walking Self-Care/Home Management Treatment Education Other Education Con't hydration when on long car rides, benefits of community balance class like [employer] in the future, also PT is available if needed in the future and he does have some right cervical rotation limitation and no pain PT-OP-T Assessment and Plan Start: 11/08/23 07:14 Freq: Status: Active Protocol: Document 12/13/23 15:18 MB (Rec: 12/13/23 16:05 MB [id number]) Physical Therapy Assessment Goals 3 Impairment Lack of HEP Ged Preparation Teacher Goal (LTG) Pt will perform progressive HEP with I including VOR, postural and balance exercises to decrease fall risk and improve symptoms. 12/13/23: Pt is performing exercises at least twice daily and he reports improvement LTG Duration Met 2 Impairment DHI score reflects 18% impairment Ged Preparation Teacher Goal (LTG) Pt will present with an improved DHI score to reflect no more than 10% impairment to improve balance and quality of life d/t dizziness. 12/13/23: DHI score is 12/100, reflecting 12% impairment LTG Duration Partially met 1 Impairment Imbalance Ged Preparation Teacher Goal (LTG) Pt will perform WNLs on FGA to decrease fall risk. 12/13/23: FGA score is normal with scoring 28/30 LTG Duration Met Assessment Summary Assessment Pt has been participatory and compliant with PT treatments and HEP. Today, he presents with normal FGA testing and DHI score reflecting 12% impairment. Progressed static balance exercises for home today and he returns to ENT in a couple of weeks. Pt has reduced cervical rotation to the right and he states that his neck is not bothering him. He will con't with HEP at home and PT is available in the future if he needs it. Will d/c PT today.
== END 2023-12-21 13:01 | disposition home or self-care (01) ==
LOC: PHYS 15:15
PROVIDERS: Family Provider Nurse Practitioner Family; PCP Nurse Practitioner Family; Referring Provider Otolaryngology; Visit Provider Otolaryngology
DX: R42 Dizziness and giddiness (principal)
CPT/HCPCS: 97110; 97112; 97162; 97530; 97535